=== PATIENT | female | born 1935 | race Caucasian/White ===

== ENCOUNTER → 2016-09-12 | Outpatient (CLI) | payer MEDICARE ==
[~2016-09-12] MED LIST: ARICEPT5 MG PO; ASPIRIN EC81 MG PO; ASPIRIN81 MG PO; BENICAR20 MG PO; CELEBREX 200MG200 MG PO; EFFEXOR XR75 MG PO; K-TAB ER20 MEQ PO; LIPITOR TAB 1010 MG PO; PROCARDIA XL60 MG PO; TOPROL XL25 MG PO; TOPROL XL50 MG PO; ZANTAC300 MG PO
== END ==
LOC: RAD 14:58
DX: E83.52 Hypercalcemia (principal); J43.9 Emphysema, unspecified
CPT/HCPCS: 71020

== ENCOUNTER → 2020-09-26 | Outpatient (CLI) | payer MEDICARE | LOC: HEART 5 09:13 | DX: R06.02 Shortness of breath (principal); I27.20 Pulmonary hypertension, unspecified; I08.3 Combined rheumatic disorders of mitral, aortic and tricuspid valves; R93.1 Abnormal findings on diagnostic imaging of heart and coronary circulation | CPT/HCPCS: 93306 ==